=== PATIENT | female | born 1980 | race Hispanic/Latino ===

== ENCOUNTER → 2024-10-13 | Day surgery (SDC) | payer OTHER ==
[~2024-10-13] MED LIST: CRESTOR40 MG PO; FENTANYL CITRATE/PF 100MCG/2 ML INJ ONE; LIDOCAINE HCL 2% LOCAL INJ 5 ML SDV VIAL INJ ONE; METFORMIN HCL500 MG PO; METOPROLOL SUCC50 MG PO; ONDANSETRON HCL INJ 2MG/ML 2ML 2 MG/ML VIAL ONE; PROPOFOL IV EMULSION 10 MG/ML 20 ML VIAL ONE; SERTRALINE HCL50 MG PO
[2024-10-13] MEDS: LACTATED RINGER'S 1,000 ML ONE (09:19)
[2024-10-13 12:59] VITALS: TEMP 97.3
[2024-10-13 13:20] VITALS: BP 116/74; PULSE 65; RESP 18; O2SAT 100
== END | disposition home or self-care (01) ==
LOC: OR 08:35
PROVIDERS: ATTEND Internal Medicine Gastroenterology
DX: K29.50 Unspecified chronic gastritis without bleeding (principal); K31.89 Other diseases of stomach and duodenum; K20.90 Esophagitis, unspecified without bleeding; K21.9 Gastro-esophageal reflux disease without esophagitis; K59.09 Other constipation; R19.5 Other fecal abnormalities; E11.9 Type 2 diabetes mellitus without complications; I10 Essential (primary) hypertension; Z71.89 Other specified counseling; E78.5 Hyperlipidemia, unspecified; F41.9 Anxiety disorder, unspecified; Z01.810 Encounter for preprocedural cardiovascular examination; Z79.84 Long term (current) use of oral hypoglycemic drugs; Z79.899 Other long term (current) drug therapy; Z68.27 Body mass index [BMI] 27.0-27.9, adult; Z71.3 Dietary counseling and surveillance
CPT/HCPCS: 43239; 81025; 93005; J2003; J2405; J2470; J2704; J3010; J7121

== ENCOUNTER → 2024-11-05 | Outpatient (REF) | payer OTHER ==
[~2024-11-05] MED LIST changes: -FENTANYL CITRATE/PF 100MCG/2 ML INJ ONE; -LIDOCAINE HCL 2% LOCAL INJ 5 ML SDV VIAL INJ ONE; -ONDANSETRON HCL INJ 2MG/ML 2ML 2 MG/ML VIAL ONE; -PROPOFOL IV EMULSION 10 MG/ML 20 ML VIAL ONE
== END ==
LOC: US 09:54
PROVIDERS: ATTEND Nurse Practitioner
DX: R10.10 Upper abdominal pain, unspecified (principal)
CPT/HCPCS: 76700

== ENCOUNTER → 2025-05-26 | Outpatient (REF) | payer OTHER ==
[~2025-05-26] MED LIST changes: +DIATRIZOATE MEGL/DIATRIZOA SOD 30 ML BTL PO ONE; +IOPAMIDOL 370 MG/ML 100 ML INFUS..BTL INJ ONE
[2025-05-26 15:42] LABS: EST GLOMERULAR FILTRATION RATE 112.0 ML/MIN (>=60)
== END ==
LOC: CT 14:16
PROVIDERS: ATTEND Nurse Practitioner
DX: R10.10 Upper abdominal pain, unspecified (principal); K29.60 Other gastritis without bleeding; K59.09 Other constipation
CPT/HCPCS: 36415; 74177; 82565; 84520; Q9963; Q9967